=== PATIENT | female | born 1940 | race Caucasian/White ===

== ENCOUNTER 2018-03-03 17:48 | Emergency (ER) | payer MEDICARE, OTHER ==
[~2018-03-03] VITALS: Ht 160 cm; Wt 56.7 kg
[~2018-03-03 17:48] MED LIST: ACETAMINOPHEN-1 EAC1 PO; ANTIVERT25 MG PO; BISACODYL SUPP10 MG RE; CARDIO TABS; CLONAZEPAM 0.50.5 M1 PO; COZAAR 50 MG TA50 M2 PO; CREON DR 24,001 EACH PO; DIOVAN320 MG PO; FISH OIL 1,0001 EAC8 PO; FLAGYL375 MG PO; FLEXERIL PO; FROVA2.5 MG; HYDROCODON-ACE1 EAC7 PO; HYDROCODON-ACE1 EAC8 PO; HYDROCODONE-AP1 EAC6 PO; HYDROCODONE-APA1 TA1 PO; KEFLEX500 MG PO; KLOR-CON 1010 MEQ PO; LAMICTAL 25 MG25 M1 PO; LAMICTAL100 MG PO; LASIX 20 MG TAB20 MG PO; LOPRESSOR50 MG PO; LORTAB 7.5/5001 TA1 PO; MIRALAX255 GM; MOBIC15 MG PO; NEXIUM 40 MG CA40 M1 PO; NORCO 5-325 TA1 EACH PO; NORVASC5 MG PO; OMEGA 3-6-9 CO1 EACH; PANCREATIN 8X1 GM; PREMARIN0.3 MG PO; PREVACID15 MG PO; PROZAC 10 MG CA10 MG PO; RED YEAST RICE600 MG; TAMBOCOR 50 MG50 MG PO; TENEX1 MG PO; VALTREX 500 MG500 M1 PO; VICODIN HP 10-1 EAC1 PO; VITAMIN B-12100 MC1; VITAMIN D3400 UNI2; XARELTO15 MG PO; ZANTAC 150MG T150 MG PO; ZOFRAN ODT4 MG DISSOLVE; ZOFRAN ODT4 MG PO; ZOFRAN4 MG PO; [UNRECOGNIZED DRUG - OTHER]; [UNRECOGNIZED DRUG - OTHER]
[2018-03-03] MEDS ORDERED: [UNRECOGNIZED DRUG - REMARK] PO (18:14)
[2018-03-03] MEDS ORDERED: NORVASC5 MG PO (18:16)
[2018-03-03] MEDS ORDERED: NASACORT10.8 ML NASAL (18:17)
[2018-03-03] MEDS ORDERED: ALLEGRA ALLERG180 MG PO (18:17)
[2018-03-03] MEDS ORDERED: VALTREX 500 MG500 M1 PO (18:18)
[2018-03-03] MEDS ORDERED: BRINTELLIX10 MG PO (18:19)
[2018-03-03] MEDS ORDERED: TOPAMAX25 M1 PO (18:19)
[2018-03-03] MEDS ORDERED: [UNRECOGNIZED DRUG - REMARK] (18:20)
[2018-03-03] MEDS ORDERED: RED YEAST RICE600 MG PO (18:20)
[2018-03-03] MEDS ORDERED: [UNRECOGNIZED DRUG - REMARK] (18:20)
[2018-03-03] MEDS ORDERED: VITAMIN D3400 UNIT PO (18:21)
[2018-03-03] MEDS ORDERED: OMEGA 3 1,0001 EACH PO (18:21)
[2018-03-03] MEDS ORDERED: [UNRECOGNIZED DRUG - REMARK] PO (18:23)
[2018-03-03 19:09] VITALS: BP 163/68
== END 2018-03-03 19:10 | disposition home or self-care (01) ==
LOC: M.ERS 17:48
DX: G43.009 Migraine without aura, not intractable, without status migrainosus (principal); I10 Essential (primary) hypertension; I48.91 Unspecified atrial fibrillation; F32.9 Major depressive disorder, single episode, unspecified; Z90.710 Acquired absence of both cervix and uterus; Z88.6 Allergy status to analgesic agent; Z88.8 Allergy status to other drugs, medicaments and biological substances

== ENCOUNTER 2018-03-08 09:25 | Emergency (ER) | payer MEDICARE, OTHER ==
[~2018-03-08] VITALS: Ht 160 cm; Wt 56.7 kg
[~2018-03-08 09:25] MED LIST changes: +ALLEGRA ALLERG180 MG PO; +BRINTELLIX10 MG PO; +NASACORT10.8 ML NASAL; +OMEGA 3 1,0001 EACH PO; +RED YEAST RICE600 MG PO; +TOPAMAX25 M1 PO; +VITAMIN D3400 UNIT PO; +[UNRECOGNIZED DRUG - REMARK]; +[UNRECOGNIZED DRUG - REMARK]; +[UNRECOGNIZED DRUG - REMARK] PO; +[UNRECOGNIZED DRUG - REMARK] PO
[2018-03-08 09:30] VITALS: BP 164/79
== END 2018-03-08 09:46 | disposition home or self-care (01) ==
LOC: M.ERS 09:25
DX: G43.909 Migraine, unspecified, not intractable, without status migrainosus (principal); R20.2 Paresthesia of skin; I10 Essential (primary) hypertension; I48.91 Unspecified atrial fibrillation; Z88.5 Allergy status to narcotic agent; Z88.6 Allergy status to analgesic agent; Z88.8 Allergy status to other drugs, medicaments and biological substances

== ENCOUNTER 2018-03-09 14:13 | Emergency (ER) | payer MEDICARE, OTHER ==
[~2018-03-09] VITALS: Ht 154.9 cm; Wt 63.5 kg
[2018-03-09 15:52] VITALS: BP 160/72
== END 2018-03-09 15:52 | disposition home or self-care (01) ==
LOC: M.ERS 14:13
DX: G43.909 Migraine, unspecified, not intractable, without status migrainosus (principal); I10 Essential (primary) hypertension; I48.91 Unspecified atrial fibrillation; F32.9 Major depressive disorder, single episode, unspecified; Z90.710 Acquired absence of both cervix and uterus; Z98.890 Other specified postprocedural states; Z88.6 Allergy status to analgesic agent; Z88.8 Allergy status to other drugs, medicaments and biological substances

== ENCOUNTER 2018-03-11 10:30 | Emergency (ER) | payer MEDICARE, OTHER ==
[~2018-03-11] VITALS: Ht 160 cm; Wt 56.7 kg
[2018-03-11 11:07] VITALS: BP 145/69
== END 2018-03-11 11:08 | disposition home or self-care (01) ==
LOC: M.ERS 10:30
DX: G43.909 Migraine, unspecified, not intractable, without status migrainosus (principal); I10 Essential (primary) hypertension; I48.91 Unspecified atrial fibrillation; F32.9 Major depressive disorder, single episode, unspecified; Z98.890 Other specified postprocedural states; Z90.710 Acquired absence of both cervix and uterus; Z90.49 Acquired absence of other specified parts of digestive tract; Z88.6 Allergy status to analgesic agent; Z88.8 Allergy status to other drugs, medicaments and biological substances

== ENCOUNTER 2018-03-26 14:29 | Emergency (ER) | payer MEDICARE, OTHER ==
[~2018-03-26] VITALS: Ht 160 cm; Wt 56.7 kg
[2018-03-26 15:13] VITALS: BP 181/96
== END 2018-03-26 15:14 | disposition home or self-care (01) ==
LOC: M.ERS 14:29
DX: J30.2 Other seasonal allergic rhinitis (principal); R51 Headache; I10 Essential (primary) hypertension; I48.91 Unspecified atrial fibrillation; F32.9 Major depressive disorder, single episode, unspecified; Z90.710 Acquired absence of both cervix and uterus; Z90.49 Acquired absence of other specified parts of digestive tract; Z88.8 Allergy status to other drugs, medicaments and biological substances; Z88.6 Allergy status to analgesic agent

== ENCOUNTER 2018-03-27 19:12 | Emergency (ER) | payer MEDICARE, OTHER ==
[~2018-03-27] VITALS: Ht 160 cm; Wt 56.7 kg
[2018-03-27 20:07] VITALS: BP 190/81
== END 2018-03-27 20:11 | disposition left against medical advice (07) ==
LOC: M.ERS 19:12
DX: G43.909 Migraine, unspecified, not intractable, without status migrainosus (principal); I10 Essential (primary) hypertension; I48.91 Unspecified atrial fibrillation; F32.9 Major depressive disorder, single episode, unspecified; Z90.710 Acquired absence of both cervix and uterus; Z90.49 Acquired absence of other specified parts of digestive tract; Z88.6 Allergy status to analgesic agent; Z88.8 Allergy status to other drugs, medicaments and biological substances

== ENCOUNTER 2018-03-31 11:02 | Emergency (ER) | payer MEDICARE, OTHER ==
[~2018-03-31] VITALS: Ht 160 cm; Wt 56.7 kg
[2018-03-31 11:03] VITALS: BP 169/88
== END 2018-03-31 11:19 | disposition home or self-care (01) ==
LOC: M.ERS 11:02
DX: R51 Headache (principal); J30.2 Other seasonal allergic rhinitis; I10 Essential (primary) hypertension; I48.91 Unspecified atrial fibrillation; Z88.8 Allergy status to other drugs, medicaments and biological substances; Z88.6 Allergy status to analgesic agent; Z90.710 Acquired absence of both cervix and uterus; Z90.49 Acquired absence of other specified parts of digestive tract

== ENCOUNTER 2018-04-03 08:25 | Emergency (ER) | payer MEDICARE, OTHER ==
[~2018-04-03] VITALS: Ht 157.5 cm; Wt 49.9 kg
[2018-04-03 08:37] VITALS: BP 156/72
[2018-04-03] MEDS ORDERED: PREDNISONE 10 M10 MG PO (08:43)
== END 2018-04-03 08:55 | disposition home or self-care (01) ==
LOC: M.ERS 08:25
DX: R51 Headache (principal); G89.29 Other chronic pain; I10 Essential (primary) hypertension; I48.91 Unspecified atrial fibrillation; F32.9 Major depressive disorder, single episode, unspecified; Z90.710 Acquired absence of both cervix and uterus; Z90.49 Acquired absence of other specified parts of digestive tract; Z88.6 Allergy status to analgesic agent; Z88.8 Allergy status to other drugs, medicaments and biological substances

== ENCOUNTER 2018-05-17 11:47 | Emergency (ER) | payer MEDICARE, OTHER ==
[~2018-05-17] VITALS: Ht 157.5 cm; Wt 49.9 kg
[~2018-05-17 11:47] MED LIST changes: +PREDNISONE 10 M10 MG PO
[2018-05-17 12:48] VITALS: BP 116/83
== END 2018-05-17 12:49 | disposition home or self-care (01) ==
LOC: M.ERS 11:47
DX: R51 Headache (principal); I10 Essential (primary) hypertension; I48.91 Unspecified atrial fibrillation; F32.9 Major depressive disorder, single episode, unspecified; Z90.710 Acquired absence of both cervix and uterus; Z88.6 Allergy status to analgesic agent; Z88.8 Allergy status to other drugs, medicaments and biological substances; Z90.49 Acquired absence of other specified parts of digestive tract